=== PATIENT | female | born 1980 | race Caucasian/White ===

== ENCOUNTER 2021-03-19 17:02 | Emergency (ER) | payer MEDICAID ==
[~2021-03-19] VITALS: Ht 162.6 cm; Wt 63.6 kg
[2021-03-19 21:50] VITALS: BP 142/87
== END 2021-03-19 23:00 | disposition left against medical advice (07) ==
LOC: EMS 17:04
DX: M25.561 Pain in right knee (principal); M25.562 Pain in left knee; Z53.21 Procedure and treatment not carried out due to patient leaving prior to being seen by health care provider